=== PATIENT | female | born 1955 | race Caucasian/White ===

== ENCOUNTER → 2016-11-01 | Outpatient (CLI) | payer MEDICARE ==
[~2016-11-01] MED LIST: AMBIEN; AMBIEN CR; ATARAX; ATARAX PO; BENTYL20 MG PO; BUPROPION HCL75 MG; CARAFATE1 G PO; CYMBALTA; DEPAKOTE; FLEXERIL PO; HYDROMET SYRUP480 ML PO; HYDROXYZINE HCL50 MG PO; IBUPROFEN PO; LORTAB 5-325 M1 EACH PO; LORTAB 5/500 TA1 TA2 PO; LORTAB 7.5-5001 TAB PO; LUNESTA PO; LUNESTA1 MG PO; MACROBID100 MG DOB; MELATONIN3 MG PO; NAPROXEN PO; NEURONTIN; OMEPRAZOLE40 MG PO; PERCOCET 5-3251 TAB PO; PHENERGAN; PHENERGAN SUPP25 MG PR; PHENERGAN25 M1; PRESTIQUE; PROTONIX PO; PROZAC PO; SEROQUEL; SONATA PO; TOPIRAMATE25 MG PO; ZOFRAN; ZOFRAN ODT4 MG PO; ZOFRAN ODT4 MG/UDTAB SL; ZOFRAN PO; ZOFRAN8 MG PO; ZOLOFT100 MG PO
--- NOTE | ~2016-11-01 | CR7 ---
[facility] A Service of [facility] & [facility] RADIOLOGY TEXT RESULTS PATIENT: NOAH JORDAN LOCATION: [facility] : 53 UNIT #: [id number] AGE: [address]: Enma Ennis APRN SEX: F ORDER DR: [id number] [facility] [address] [place], [place] [address] [id number] O MR#: [id number] Acc #: [id number] NAME: NOAH JORADN : 1955 SEX: F STUDY DATE/TIME: 11/01/2016 17:23 UNIT: [facility] ROOM: STUDY DESCRIPTION: CR Abdomen Single AP View Attending Physician: Enma Ennis Aprn Referring Physician: Enma Ennis Aprn Ordering Physician: Enma Ennis Aprn Primary Care Physician: Herlinda Sampson M.D. MEDICAL IMAGING REPORT This report is preliminary unless electronic signature is present EXAM AP view of the abdomen INDICATION Abdominal pain 3 weeks. No comparisons. FINDINGS The bowel gas pattern is nonobstructed. Degenerative changes lumbar spine. Cholecystectomy clips. IMPRESSION Nonobstructive bowel gas pattern. Dictated by... Herber Santos M.D. THIS IS AN ELECTRONICALLY VERIFIED REPORT Herber Santos M.D. at 11/02/2016 12:25 PM CHAPITO/mirlande TD: 11/02/2016 08:53 JOB #: [id number] MEDICAL IMAGING REPORT Page 1 of 1 COPY
--- NOTE | ~2016-11-01 | CR181 ---
[facility] A Service of [facility] & [facility] RADIOLOGY TEXT RESULTS PATIENT: NOAH JORDAN LOCATION: [facility] : 53 UNIT #: [id number] AGE: [address]: Enma Ennis APRN SEX: F ORDER DR: [id number] [place] [address] [place], [place] [address] [id number] O MR#: [id number] Acc #: [id number] NAME: NOAH JORDAN : 1955 SEX: F STUDY DATE/TIME: 11/01/2016 17:24 UNIT: [facility] ROOM: STUDY DESCRIPTION: CR Lumbar Spine 2 or 3 Views Attending Physician: Enma Ennis Aprn Referring Physician: Enma Ennis Aprn Ordering Physician: Enma Ennis Aprn Primary Care Physician: Herlinda Sampson M.D. MEDICAL IMAGING REPORT This report is preliminary unless electronic signature is present EXAM Lumbar spine 3 views INDICATION Low back pain for 3 weeks. COMPARISON No comparisons FINDINGS Vertebral body heights are maintained. Minimal grade 1 anterolisthesis of L4 on L5. Mild multilevel degenerative disc disease. Lower lumbar spine facet arthropathy. IMPRESSION Degenerative change as described. Dictated by... Herber Santos M.D. THIS IS AN ELECTRONICALLY VERIFIED REPORT Herber Santos M.D. at 11/02/2016 12:25 PM Tigist TD: 11/02/2016 08:50 JOB #: [id number] MEDICAL IMAGING REPORT Page 1 of 1 COPY
--- NOTE | ~2016-11-01 | CR63 ---
[facility] A Service of [facility] & [facility] RADIOLOGY TEXT RESULTS PATIENT: NOAH JORDAN LOCATION: [facility] : 53 UNIT #: [id number] AGE: [address]: Enma Ennis APRN SEX: F ORDER DR: [id number] [facility] [address] [place], [place] [address] [id number] O MR#: [id number] Acc #: [id number] NAME: NOAH JORDAN : 1955 SEX: F STUDY DATE/TIME: 11/01/2016 17:22 UNIT: [facility] ROOM: STUDY DESCRIPTION: CR Chest 2 View Attending Physician: Enma Ennis Aprn Referring Physician: Enma Ennis Aprn Ordering Physician: Enma Ennis Aprn Primary Care Physician: Herlinda Sampson M.D. MEDICAL IMAGING REPORT This report is preliminary unless electronic signature is present EXAM PA and lateral chest INDICATION Wheezing for 3 weeks. COMPARISON 06/01/2016 FINDINGS The lungs are well expanded and clear. The heart size is stable. Stable increased thoracic kyphosis with mild degenerative change. IMPRESSION No significant change in the appearance of the chest. Dictated by... Herber Santos M.D. THIS IS AN ELECTRONICALLY VERIFIED REPORT Herber Santos M.D. at 11/02/2016 12:25 PM CHAPITO/sharona TD: 11/02/2016 08:49 JOB #: [id number] MEDICAL IMAGING REPORT Page 1 of 1 COPY
== END | disposition home or self-care (01) ==
LOC: CRAD 16:55
DX: M54.5 Low back pain (principal); R10.9 Unspecified abdominal pain; R19.00 Intra-abdominal and pelvic swelling, mass and lump, unspecified site; R06.2 Wheezing; M47.896 Other spondylosis, lumbar region
CPT/HCPCS: 71020; 72100; 74000

== ENCOUNTER → 2016-11-08 | Outpatient (CLI) | payer MEDICARE ==
--- NOTE | ~2016-11-08 | US128 ---
[id number] [facility] [address] [facility]. [place], [place] [address] [id number] O MR#: [id number] Acc #: [id number] NAME: NOAH JORDAN : 1955 SEX: F STUDY DATE/TIME: 11/08/2016 14:38 UNIT: [facility] ROOM: STUDY DESCRIPTION: Thyroid Attending Physician: Herlinda Sampson M.D. Referring Physician: Herlinda Sampson M.D. Ordering Physician: Herlinda Sampson M.D. Primary Care Physician: Herlinda Sampson M.D. MEDICAL IMAGING REPORT This report is preliminary unless electronic signature is present EXAM Thyroid ultrasound COMPARISON None INDICATIONS A 61-year-old female with thyromegaly and fatigue for 1 month. FINDINGS Thyroid gland is normal in size. There is diffuse mild heterogeneity of the thyroid gland. In the mid pole the left lobe of thyroid gland, there is a hypoechoic nodule measuring 1 cm x 0.6 cm x 0.8 cm. In the inferior right lobe, there is a hypoechoic nodule measuring 5 mm x 3 mm x 4 mm. IMPRESSION 1. Normal size of the thyroid gland. 2. Single nodules in each lobe of the thyroid gland which do not meet the criteria for biopsy by SRU recommendations. Consider imaging followup in 1 year to document stability. Dictated by... Fredrick Cortes M.D. THIS IS AN ELECTRONICALLY VERIFIED REPORT Fredrick Cortes M.D. at 11/14/2016 11:46 AM Db TD: 11/09/2016 23:46 JOB #: [id number] MEDICAL IMAGING REPORT Page 1 of 1 COPY
== END | disposition home or self-care (01) ==
LOC: CGUS 14:25
DX: E01.0 Iodine-deficiency related diffuse (endemic) goiter (principal); E04.2 Nontoxic multinodular goiter
CPT/HCPCS: 76536

== ENCOUNTER 2016-12-19 09:17 | Emergency (ER) | payer MEDICARE ==
--- NOTE | ~2016-12-19 | CT2 ---
[facility] A Service of [facility] & [facility] RADIOLOGY TEXT RESULTS PATIENT: NOAH JORDAN LOCATION: [facility] : 53 UNIT #: [id number] AGE: [address]: Lynne Engel MD SEX: F ORDER DR: [id number] [address] [address] [id number] E MR#: [id number] Acc #: [id number] NAME: NOAH JORDAN : 1955 SEX: F STUDY DATE/TIME: UNIT: [facility] ROOM: STUDY DESCRIPTION: CT Abd and Pelv W Cont Attending Physician: Lynne Engel M.D. Ordering Physician: Lynne Engel M.D. Primary Care Physician: Herlinda Sampson M.D. MEDICAL IMAGING REPORT This report is preliminary unless electronic signature is present. EXAM CT abdomen pelvis with contrast 12/19/2016 1159 hours HISTORY 61-year-old woman with complaint of nausea, vomiting and diarrhea since 12/16/2016. COMPARISON 11/16/[address] images were obtained from the lung bases through the pubic symphysis with intravenous contrast only. Sagittal and coronal reconstructions were performed. Contrast was Isovue-370 100 mL IV. Total exam DLP 1074 mGy - cm. This CT exam was performed with one or more of the following radiation dose reduction techniques: automatic exposure control, adjustment of mA and/or kV according to patient size, and iterative reconstruction. FINDINGS Images through the lung bases demonstrate minimal scarring in the lingula. There is no acute infiltrate or effusion. The distal esophagus is normal. Postcontrast images through the abdomen demonstrate a normal appearance to the liver, spleen, pancreas and bile ducts. There are clips consistent with prior cholecystectomy. The adrenal glands are normal. The kidneys are unchanged. There is a cyst in the lower pole left kidney. There is no renal or ureteral calculus. The bladder is normal. The stomach is decompressed. There is no gastric wall thickening. There is postop change of prior hiatal hernia repair. The small bowel is nondistended. There is no small bowel wall thickening. The terminal [facility] A Service of [facility] & [facility] RADIOLOGY TEXT RESULTS PATIENT: NOAH JORDAN LOCATION: [facility] : 53 UNIT #: [id number] AGE: [address]: Lynne Engel MD SEX: F ORDER DR: ileum and cecum are normal. The appendix is surgically absent. There is no colonic distension or colonic wall thickening. There are a few diverticula of the sigmoid colon without evidence of diverticulitis. The uterus is off axis to the right but normal in appearance. There is no adnexal mass or pelvic free fluid. There is a periumbilical ventral wall hernia with defect measuring 1.3 cm cephalocaudad. Omental fat herniates through this area with hernia sac measuring 5.3 x 2.7 cm. There is no bowel involvement. This hernia is similar to the prior exam. IMPRESSION 1. No acute findings in the abdomen or pelvis. 2. Postop change at the GE junction likely hiatal hernia repair. 3. Previous wall thickening of the gastric antrum seen on 11/16/2015 is not seen today. 4. Postop change cholecystectomy and appendectomy. 5. No distension or wall thickening in the small bowel or colon. 6. Stable cyst lower pole left kidney. No renal or ureteral calculi. 7. Stable ventral wall hernia containing only omental fat. Dictated by... Whit Hanna M.D. THIS IS AN ELECTRONICALLY VERIFIED REPORT Whit Hanna M.D. at 12/19/2016 5:27 PM JIM/maude TD: 12/19/2016 15:51 JOB #: [id number] MEDICAL IMAGING REPORT Page 1 of 1
[~2016-12-19 09:17] MED LIST changes: -ZOFRAN
[2016-12-19] MEDS ORDERED: ZOFRAN (09:26)
[2016-12-19] MEDS ORDERED: NEURONTIN (09:27)
[2016-12-19 10:59] LABS: BASOPHIL# 0.1 X10e3 (0-0.3); BASOPHIL% 0.7 % (0-2.5); EOSINOPHIL# 0.1 X10e3 (0-0.7); EOSINOPHIL% 0.6 % (0.0-7.0); HEMATOCRIT 49.7 % (35.0-45.0); HEMOGLOBIN 17.1 gm/dL (12.0-16.0); LYMPHOCYTE# 2.8 X10e3 (1.0-3.5); LYMPHOCYTE% 27.6 % (17.0-45.0); MEAN CELL VOLUME 86.1 FL (83-96); MEAN CORPUSCULAR HEMOGLOBIN 29.7 PG (28-34); MEAN CORPUSCULAR HGB CONC 34.5 g/dL (30-36); MEAN PLATELET VOLUME 8.8 FL (6.5-11.5); MONOCYTE# 0.5 X10e3 (0-1.0); MONOCYTE% 5.2 % (3.0-12.0); NEUTROPHIL# 6.8 X10e3 (1.5-7.1); NEUTROPHIL% 65.9 % (40-75); PLATELET COUNT 327 X10e3 (140-420); RED BLOOD COUNT 5.77 X10e (3.90-5.30); RED CELL DISTRIBUTION WIDTH 14.7 % (11.0-15.5); WHITE BLOOD COUNT 10.3 X10e3 (4.0-10.5)
[2016-12-19 11:01] LABS: URINE SOURCE CLEAN CATCH
[2016-12-19 11:03] LABS: URINE APPEARANCE CLEAR; URINE BLOOD TRACE-INTACT (NEG); URINE COLOR YELLOW; URINE GLUCOSE NEG (NORM); URINE KETONE TRACE (NEG); URINE LEUKOCYTE ESTERASE NEG (NEG); URINE NITRATE NEG (NEG); URINE PROTEIN TRACE (NEG)
[2016-12-19 11:04] LABS: DIFF IND NO
[2016-12-19 11:05] LABS: MICRO INDICATED? YES; URINE BILIRUBIN NEG (NEG)
[2016-12-19 11:09] LABS: ALBUMIN SERUM 4.7 g/dL (3.5-5.0); ALKALINE PHOSPHATASE 84 U/L (32-92); ALT (SGPT) 17 U/L (10-40); AMYLASE 20 U/L (0-46); AST (SGOT) 19 U/L (10-42); BILIRUBIN,TOTAL 0.3 mg/dL (0.2-2.0); BLOOD UREA NITROGEN 10 mg/dL (9-23); CALCIUM SERUM 9.9 mg/dL (8.4-10.2); CARBON DIOXIDE 28 mmol/L (22-31); CHLORIDE 105 mmol/L (100-111); CREATININE SERUM 0.8 mg/dL (0.6-1.4); GLOM FILT RATE Estimated 79.1 mL/min (>60); GLUCOSE FASTING 116 mg/dL (70-110); LIPASE 38 U/L (22-51); PROTEIN TOTAL SERUM 8.1 g/dL (6.0-8.3); SODIUM 141 mmol/L (135-145)
[2016-12-19 11:10] LABS: URINE BACTERIA NEG (NEG); URINE CRYSTALS CALCIUM OXALATE /[HPF]; URINE RBC 0-2 /[HPF] (0-2); URINE SQUAMOUS EPITHELIAL CELL MANY /[HPF]; URINE WBC 0-2 /[HPF] (0-5); URINE YEAST PRESENT
[2016-12-19 11:18] LABS: BILIRUBIN, DIRECT <0.1 mg/dL (0.0-0.2); BILIRUBIN,INDIRECT 0.2 mg/dL (0.0-0.9)
== END 2016-12-19 13:14 | disposition home or self-care (01) ==
LOC: SED 09:17
PROVIDERS: Emergency Medicine
DX: R11.2 Nausea with vomiting, unspecified (principal); R19.7 Diarrhea, unspecified; Z98.890 Other specified postprocedural states
CPT/HCPCS: 36415; 74177; 80048; 80076; 81003; 82150; 83690; 85025; 96361; 96374; 96375; 99284; J2270; J2405; Q9967